=== PATIENT | male | born 1945 | race Caucasian/White ===

== ENCOUNTER → 2018-12-24 10:41 | Outpatient (CLI) | payer MEDICARE, SELFPAY ==
[2018-12-24 11:06] LABS: Basophils # 0.1 K/mm3 (0-0.2); Basophils % 1.1 % (0.1-2.0); Eosinophils # 0.1 K/mm3 (0.0-0.4); Eosinophils % 1.4 % (0.1-12.0); Hematocrit 46.1 % (42.0-52.0); Hemoglobin 14.9 g/dL (14.1-18.0); Lymphocytes # 1.4 K/mm3 (0.7-4.5); Lymphocytes % 29.1 % (10-50); Mean Corpuscular HGB Conc 32.3 g/dL (31.8-35.4); Mean Corpuscular Hemoglobin 27.8 pg (27.0-31.2); Mean Corpuscular Volume 86.1 fl (80-94); Monocytes # 0.5 K/mm3 (0.1-1.0); Monocytes % 9.6 % (1.7-9.3); Neutrophils # 2.9 K/mm3 (1.8-7.8); Neutrophils % 58.8 % (37.0-80.0); Platelet Count 174 K/mm3 (142-424); Red Blood Count 5.36 M/mm3 (4.60-6.20); Red Cell Distribution Width 15.5 % (11.5-17.5); White Blood Count 4.9 K/mm3 (4.8-10.8)
[2018-12-24 12:41] LABS: Alanine Aminotransferase 22 U/L (12-78); Albumin Level 3.8 gm/dL (3.4-5.0); Alkaline Phosphatase 77 U/L (46-116); Anion Gap 13.8 mEq/L (5-15); Aspartate Amino Transferase 11 U/L (15-37); Bilirubin,Direct 0.1 mg/dL (0.0-0.2); Bilirubin,Indirect 0.4 mg/dL (0.0-0.9); Bilirubin,Total 0.5 mg/dL (0.2-1.0); Blood Urea Nitrogen 26 mg/dL (7-18); Calcium 9.3 mg/dL (8.5-10.1); Carbon Dioxide 28 mmol/L (21.0-32.0); Chloride 103 mmol/L (98-107); Cholesterol 167 mg/dL (140-200); Creatinine,Serum 1.48 mg/dL (0.70-1.30); Estimated Glomerular Filt Rate 47 ml/min (>60); GFR (African American) 56 ML/MIN (>60); Glucose 96 mg/dL (74-106); HDL Cholesterol 42 mg/dL (27-67); LDL Cholesterol 94 mg/dL (0-130); Potassium 3.8 mmoL/L (3.5-5.1); Sodium 141 mmol/L (136-145); Thyroid Stimulating Hormone 0.74 uIU/ml (0.358-3.740); Total Protein,Serum 7.7 gm/dL (6.4-8.2); Triglycerides 155 mg/dL (30-200); VLDL Cholesterol 31 mg/dL (0-40)
[2018-12-24 12:49] LABS: Prostate Specific Ag, Diagnost 4.33 ng/mL (0.0-4.0)
[2018-12-24 17:35] LABS: Hemoglobin A1C 6.3 % (0.0-7.0)
== END ==
PROVIDERS: Internal Medicine; Visit Provider Physician Assistant
DX: E11.9 Type 2 diabetes mellitus without complications (principal); E78.5 Hyperlipidemia, unspecified; R35.0 Frequency of micturition
CPT/HCPCS: 36415; 80048; 80061; 80076; 83036; 84153; 84439; 84443; 85025

== ENCOUNTER → 2021-09-14 08:55 | Outpatient (CLI) | payer MEDICARE, SELFPAY ==
[2021-09-14 10:06] LABS: Basophils # 0.1 K/mm3 (0-0.2); Basophils % 0.8 % (0.1-2.0); Eosinophils # 0.1 K/mm3 (0.0-0.4); Eosinophils % 1.9 % (0.1-12.0); Hematocrit 48.7 % (42.0-52.0); Hemoglobin 15.8 g/dL (14.1-18.0); Lymphocytes # 1.8 K/mm3 (0.7-4.5); Lymphocytes % 30.1 % (10-50); Mean Corpuscular HGB Conc 32.3 g/dL (31.8-35.4); Mean Corpuscular Hemoglobin 28.8 pg (27.0-31.2); Mean Corpuscular Volume 89.2 fl (80-94); Mean Platelet Volume 7.2 fl (7.4-10.4); Monocytes # 0.4 K/mm3 (0.1-1.0); Monocytes % 6.2 % (1.7-9.3); Neutrophils # 3.6 K/mm3 (1.8-7.8); Platelet Count 189 K/mm3 (142-424); Red Blood Count 5.46 M/mm3 (4.60-6.20); White Blood Count 5.9 K/mm3 (4.8-10.8)
[2021-09-14 11:08] LABS: Alanine Aminotransferase 23 U/L (12-78); Albumin Level 4.3 g/dl (3.5-5.0); Alkaline Phosphatase 76 U/L (38-126); Anion Gap 13.3 mEq/L (5-15); Aspartate Amino Transferase 31 U/L (17-59); Bilirubin,Total 0.6 mg/dl (0.2-1.3); Blood Urea Nitrogen 22 mg/dl (9-20); Calcium 9.4 mg/dl (8.4-10.2); Carbon Dioxide 26 mmol/L (22.0-30.0); Chloride 107 mmol/L (98-107); Chol/HDL Ratio 4.9 (1-3.5); Cholesterol 194 mg/dl (140-200); Estimated Glomerular Filt Rate 54 ml/min (>60); GFR (African American) 65 ML/MIN (>60); Glucose 132 mg/dl (74-100); HDL Cholesterol 40 mg/dl (40-60); Potassium 4.3 mmoL/L (3.5-5.1); Sodium 142 mmol/L (136-145); Total Protein,Serum 7.5 g/dl (6.3-8.2); Triglycerides 177 mg/dl (30-150); VLDL Cholesterol 35 mg/dL (0-40)
[2021-09-14 11:22] LABS: Direct LDL Cholesterol 105.98 mg/dL (100-129)
[2021-09-14 11:24] LABS: Free T4 (Free Thyroxine) 1.09 ng/dl (0.78-2.19)
[2021-09-14 11:40] LABS: Prostate Specific Ag Screen 2.2 ng/ml (0.0-4.0); Thyroid Stimulating Hormone 0.75 uIU/mL (0.465-4.68)
[2021-09-14 12:15] LABS: Vitamin B12 298 pg/mL (239-931)
[2021-09-14 12:43] LABS: Bilirubin,Direct 0.5 mg/dl (0.0-0.4); Bilirubin,Indirect 0.1 mg/dL (0.0-0.9); Bilirubin,Unconjugated 0.1 mg/dL (0.0-1.1)
--- NOTE | 2021-09-14 12:43 | CA_ITS ---
APPROVED REPORT EXAM: Comprehensive 2D, Doppler, and color-flow Echocardiogram Principal Research Economist: Debbie Brooks CRT Ht: 5 ft 7 in Wt: 208lbs BSA: 2.06 BP: 142/80 mmHg Indications: Shortness of Breath, Diabetes, Hypertension/HDD 2D Dimensions LVOT 2.39 cm (M/F) 1.5-2.5 LA Volume 42.10 mL LA Volume Index 20.40 mL/m2 (M/F) 16-34 M-Mode Dimensions RVDd 3.21 cm (0.9-2.6) LA Diam 3.50 cm (1.9-4.0) LVDd 5.02 cm (3.5-5.7) Ao Diam 4.29 cm (2.0-3.7) LVDs 3.61 cm (3.5-5.7) IVSd 1.37 cm (0.6-1.1) PWd 0.68 cm (0.6-1.1) EF (Teich) 54.10% FS 28.10% EDV (Teich) 119.30 mL ESV (Teich) 54.80 mL LV Diastology E Decel Time 325.00 (160-240 msec) E/A Ratio 0.46 MED E' 3.10 (< 7 cm/sec) MED A' 9.60 cm/s E'/MED E' Ratio 14.39 (>14) LAT E' 4.70 (<10 cm/sec) LAT A' 10.70 cm/s E/LAT E' Ratio 9.49 (>14) Aortic Valve AO Peak GR. 9.20 mmHg Mitral Valve MV E Max Josue. 45.00 (40-130 cm/s) MV A Velocity 97.00 (40-130 cm/s) E/A Ratio 0.46 MV Decel. Time 325.00 (160-240 ms) MV PHT 95.00 ms Pulmonary Valve PV Peak Velocity 124.00 (50-150 cm/s) Tricuspid Valve TR P. Velocity 187.00 cm/s RAP Estimate 10.00 mmHg RVSP 24.00 mmHg Left Ventricle Left atrium is mildly enlarged, left ventricle is normal size, mild concentric left ventricular hypertrophy, visually estimated ejection fraction 55% with no regional wall motion abnormality, grade 1 diastolic dysfunction seen without tissue Doppler evidence of raise left atrial pressure. Endocardial surfaces are poorly visualized. Right Ventricle Right atrium and right ventricle mildly enlarged with normal contractility. Aortic Valve Aortic valve is minimally thickened and fibrosed, there is no aortic stenosis or aortic insufficiency. Mitral Valve Mitral valve grossly normal, there is trace mitral regurgitation. Tricuspid Valve Tricuspid valve grossly normal, there is trace tricuspid regurgitation, tricuspid regurgitation jet velocity is inadequate for calculation of the right ventricular systolic pressure. Pulmonic Valve Pulmonic valve is poorly visualized. Great Vessels Aortic root is normal size. Inferior vena cava is normal size with normal inspiratory collapse. Pericardium No significant pericardial effusion noted. Conclusion 1. Mild biatrial enlargement, normal left ventricular size, mild concentric left ventricular hypertrophy visually estimated ejection fraction 55% with no regional wall motion abnormality, grade 1 diastolic dysfunction seen without tissue Doppler evidence of raise left atrial pressure. 2. Mildly enlarged right ventricle with normal contractility. 3. Trace mitral and tricuspid regurgitation. 4. No significant pericardial effusion noted 5. Inferior vena cava is normal size with normal inspiratory collapse. Electronically signed by : Barry Wise MD 09/15/2021 16:04:42
[2021-09-22 17:13] LABS: 1,25 Dihydroxy Vitamin D 38 pg/mL (.); 1,25-Dihydroxy, Vitamin D-2 <10 pg/mL (.); 1,25-Dihydroxy, Vitamin D-3 38 pg/mL (.)
== END ==
PROVIDERS: PCP Family Medicine; Visit Provider Internal Medicine
DX: E03.9 Hypothyroidism, unspecified (principal); I11.9 Hypertensive heart disease without heart failure; R94.31 Abnormal electrocardiogram [ECG] [EKG]; E66.01 Morbid (severe) obesity due to excess calories; E78.2 Mixed hyperlipidemia; I49.3 Ventricular premature depolarization; R06.02 Shortness of breath; Z68.35 Body mass index [BMI] 35.0-35.9, adult; E78.5 Hyperlipidemia, unspecified; Z12.5 Encounter for screening for malignant neoplasm of prostate
CPT/HCPCS: 80048; 80061; 80076; 82607; 82652; 82746; 84439; 84443; 85025; 93225; 93306; G0103

== ENCOUNTER → 2021-09-16 06:45 | Outpatient (CLI) | payer MEDICARE, SELFPAY ==
--- NOTE | 2021-09-16 06:49 | CA_ITS ---
APPROVED REPORT Exam: Exercise Treadmill Technologist: Karuna Bergman, Ht: 5 ft 7 in Wt: 226 lbs BSA: 2.13 m2 HR: 57 bpm BP: 184/82 mmHg Medical History Medications: Amlodipine,,,,, Levothyroxine,,,,, Aspirin,,,,, Gabapentin,,,,, Allopurinol,,,,, Carvedilol,,,,, TAMSULOSIN,,,,, ZYRTEC,,,,, Singulair,,,,, Maxzide,,,,, Latanoprost,,,,, EnBREL,,,,, Stress Test Details Test: Manual Treadmill HR Resting HR: 70 bpm Max Heart Rate (APMHR): 144.833691 bpm Max HR Achieved: 133 bpm Target HR (85% APMHR): 122.817804 bpm % of APMHR: 92.36 Recovery HR: 76 bpm BP Resting BP: 167/88 mmHg Max BP: 219/91 mmHg Recovery BP: 183.0/71.0 mmHg ECG Resting ECG: Sinus Dre @ 57 bpm Clinical Reason for Termination: Leg Pain Exercise duration: 05:34 min Highest Stage Achieved: Exercise capacity: 7.0 METs Stress ECG Conclusion Exercised 5:34 Minutes Max HR: 133 % of PM: 108 Max BP: 219/81 MET's: 7.0 Test stopped due to: Leg pain Symptoms: No CP Arrhythmias/Ectopy: None ST-T Changes: <1.5mm ST Segment changes Conclusion: Negative stress Electronically signed by : Barry Wise MD 09/16/2021 13:19:52
--- NOTE | 2021-09-16 06:49 | NM_ITS ---
APPROVED REPORT Exam: Nuclear Stress Test Indication: SOB, Abnormal EKG, HTN, High cholesterol, Family history Patient Location: Outpatient Stress Tech: Karuna Bergman [place] Tech:Vonnie Blakely, ARRT, RT (R)(N) Ht: 5 ft 7 in Wt: 230 lbs HR: 57 bpm BP: 184/82 mmHg BSA: 2.15 m2 BMI: 36.0 History: SOB, Abnormal EKG, HTN, High cholesterol, Family history Procedure: Patient exercised on Kael protocol 5:34 minutes and sec, resting heart rate 57 bpm, resting blood pressure 184/82 mmHg, with exercise maximum heart rate achived was 133 bpm which is 109 % of the maximum predicted heart rate and blood pressure was 219/91 mmHg. Test was stopped due to leg pain. Patient denied any complaint of chest pain. Patient has Adequate exercise capacity, achieved 7.0 METs of workload on treadmill, the blood pressure response to exercise was Hypertensive. Electrocardiogram Resting electrocardiogram shows sinus rhythm, with exercise there is less than 1.[address] segment depression noted from the baseline EKG. The EKG portion of the exercise Cardiac Stress and Resting SPECT Images: Cardiac Stress and Resting SPECT images were obtained using technetium 99m Myoview 29.2 mCi stress and 10.88 mCi at rest. Gated SPECT for analysis of segmental wall motion and calculation of the ejection fraction also done. Prone images were also obtained. Cardiac stress and resting SPECT images show uniform myocardial activity without segmental perfusion abnormality, computer derived ejection fraction is 43% with no regional wall motion abnormality, right ventricle is normal size and contractility. Conclusion: 1. The EKG portion of the exercise Myoview is negative for ischemia, patient has adequate exercise capacity achieved 7 METS of workload on treadmill, the blood pressure response to exercise was hypertensive, there was no exercise-induced chest discomfort. 2. No scintigraphic evidence of reversible ischemia seen, computer derived ejection fraction is 43% with no regional wall motion abnormality, right ventricle is normal size and contractility. 3. Abnormal exercise Myoview study due to low ejection fraction. Electronically signed by : Barry Wise MD 09/16/2021 13:31:50
--- NOTE | 2021-09-16 09:42 | HMH.ITSHM ---
Current Home Medications as stated by this patient Shania Modi or product sales representative. []TAMSULOSIN MONTELUKAST LEVOTHYROXINE GABAPENTIN EZETIMIBE CETIRIZINE CARVEDILOL ASA AMLODIPNIE ALLOPURINOL
== END ==
PROVIDERS: PCP Family Medicine; Visit Provider Internal Medicine
DX: E03.9 Hypothyroidism, unspecified (principal); E66.01 Morbid (severe) obesity due to excess calories; E78.2 Mixed hyperlipidemia; I11.9 Hypertensive heart disease without heart failure; I49.3 Ventricular premature depolarization; R06.02 Shortness of breath; R94.31 Abnormal electrocardiogram [ECG] [EKG]; Z68.35 Body mass index [BMI] 35.0-35.9, adult
CPT/HCPCS: 78452; 93017; A9502